=== PATIENT | female | born 1985 | race Caucasian/White ===

== ENCOUNTER → 2016-08-26 | Outpatient (CLI) | payer BC ==
[~2016-08-26] MED LIST: ACET50TA PO; ACET65TA OR; CIPR500T4 OR; DOCU10ELUD PO; MACR50CA PO; MAGNESIUM HYDROXIDE PO; MOTRIN PO; PRENTAB74 PO; [UNRECOGNIZED DRUG - CODE] TOP
--- NOTE | 2016-08-27 06:19 | REP ---
Clinical: Left neck/parotid mass. Technique: Real time do scale ultrasound examination using linear high frequency transducer. Findings: Directed ultrasound examination demonstrates a relatively normal appearing left parotid gland measuring approximately 2.8 x 1.8 x 0.6 cm and including small 2 mm complex but otherwise nonspecific cyst. Adjacent adenopathy is appreciated with lymph nodes measuring up to 1.2 cm. No fluid collection or abscess. Impression: 1. Relatively normal appearance to the parotid gland by ultrasound with small nonspecific 2 mm complex cyst. 2. Adenopathy along the left cervical chain with multiple lymph nodes up to 12 mm. In conjunction with prior CT findings may reflect an infectious/inflammatory process. Correlation and follow up may be warranted. Signed by Ulises Rutherford MD 08/27/2016 06:11 A
== END ==
LOC: M RAD 12:40
PROVIDERS: ATTEND Otolaryngology
DX: K11.6 Mucocele of salivary gland (principal); R59.9 Enlarged lymph nodes, unspecified; D49.0 Neoplasm of unspecified behavior of digestive system

== ENCOUNTER → 2016-10-22 | Outpatient (CLI) | payer BC ==
--- NOTE | 2016-10-22 14:59 | REP ---
Clinical: Contusion. Technique: AP, lateral, bilateral oblique views left ankle. Findings: No acute fracture or dislocation. Skeletal structures and joint spaces are intact and normal. Ankle mortise appears stable. No subcutaneous emphysema or radiodense foreign body. Impression: No acute fracture or dislocation. Signed by Ulises Rutherford MD 10/22/2016 02:16 P
== END ==
LOC: M ADAMS 14:01
PROVIDERS: ATTEND Physician Assistant Medical
DX: S90.02XA Contusion of left ankle, initial encounter (principal); W18.30XA Fall on same level, unspecified, initial encounter; Y92.009 Unspecified place in unspecified non-institutional (private) residence as the place of occurrence of the external cause

== ENCOUNTER 2017-05-17 08:20 | Inpatient (IN) | payer BC ==
[~2017-05-17] VITALS: Ht 154.9 cm; Wt 69.8 kg
[2017-05-17] MEDS ORDERED: KETOROLAC 30 MG/ML VIAL (J1885) IV ONE (08:45)
[2017-05-17] MEDS ORDERED: NS 1,000 ML IV ONE ×2 (08:45→11:30)
[2017-05-17 09:11] LABS: BASO % 0.2 % (0.0-1.0); IMMATURE GRANULOCYTE % 0.9 % (0-0); LYMPH # 0.3 10^3/uL (1.5-4.5); LYMPH % 1.8 % (24.0-44.0); MEAN CORPUSCULAR HEMOGLOBIN 28.5 pg (27.0-33.0); MEAN CORPUSCULAR HGB CONC 34.9 g/dl (32.0-36.5); MEAN CORPUSCULAR VOLUME 81.8 fl (80.0-96.0); MONO # 0.5 10^3/uL (0.0-0.8); MONO % 2.7 % (0.0-5.0); NEUTROPHILS # 16.5 10^3/uL (1.8-7.7); NEUTROPHILS % 94.4 % (36.0-66.0); PLATELET COUNT, AUTOMATED 227 10^3/uL (150-450); RED CELL DISTRIBUTION WIDTH 12.7 % (11.5-14.5); WHITE BLOOD COUNT 17.4 10^3/uL (4.0-10.0)
[2017-05-17] MEDS ORDERED: ONDANSETRON 4MG/2ML VIAL (J2405) IV ONE ×2 (09:15→14:15)
[2017-05-17 09:31] LABS: ANION GAP 9 MEQ/L (8-16); BLOOD UREA NITROGEN 14 MG/DL (7-18); CALCIUM LEVEL 8.9 MG/DL (8.5-10.1); CARBON DIOXIDE LEVEL 26 MEQ/L (21-32); CHLORIDE LEVEL 104 MEQ/L (98-107); CREATININE FOR GFR 0.86 MG/DL (0.55-1.02); GLOMERULAR FILTRATION RATE > 60.0 (>60); GLUCOSE, FASTING 120 MG/DL (70-105); POTASSIUM SERUM 3.3 MEQ/L (3.5-5.1); SODIUM LEVEL 139 MEQ/L (136-145)
[2017-05-17] MEDS ORDERED: cefTRIAXone SOD 2 GM in D5W 50 ML IV ONE (10:15)
[2017-05-17] MEDS ORDERED: ISOVUE-370 76% 100ML VIAL (Q9967) As Ordered ONE (10:16)
--- NOTE | 2017-05-17 10:50 | REP ---
CT of the abdomen pelvis with IV contrast, without bowel contrast: Comparison is 06/22/2010. The visualized lung ha are unremarkable. The hepatic parenchyma, gallbladder, pancreas and spleen are normal size unremarkable. The adrenals are unremarkable. The right and left kidneys demonstrate normal cortical enhancement. There is no perinephric stranding. No hydronephrosis. No CT evidence of pyelonephritis or carbuncle. The abdominal aorta is unremarkable. There is no retroperitoneal adenopathy. The bowel and mesentery are unremarkable. There is no ascites. Pelvis: The appendix is unremarkable. The uterus, adnexa and bladder are unremarkable. There is no ascites or adenopathy. The pelvic bowel loops are unremarkable. Impression: Essentially negative CT of the abdomen pelvis. There is no CT evidence of pyelonephritis or renal carbuncle. No hydronephrosis. No renal calculi or masses. Signed by Galen Ralph MD 05/17/2017 10:41 A
[2017-05-17] MEDS ORDERED: PERCOCET 5MG/325MG TAB PO ONE (11:30)
[2017-05-17] MEDS ORDERED: PROMETHAZINE INJ 25 MG/ML VIAL (J2550) IV ONE (12:45)
[2017-05-17] MEDS ORDERED: KCL 40MEQ in NS 1000ML 1,000 ML IV SCH (12:45)
[2017-05-17 13:46] LABS: CONTROL LINE HCG INT CTR LINE PRESENT
[2017-05-17] MEDS ORDERED: IBUPOTC PO (13:48)
[2017-05-17] MEDS ORDERED: ACET50TAOT PO (13:48)
[2017-05-17] MEDS ORDERED: VANCOMYCIN HCL 1,000 MG, VIAL MATE ADAPTER 1 EACH in D5W 250 ML IV ONE (14:00)
[2017-05-17] MEDS ORDERED: MORPHINE 4 MG/ML 1ML SYRINGE IV ONE (14:15)
[2017-05-17 14:41] LABS: BASO % 0.2 % (0.0-1.0); IMMATURE GRANULOCYTE % 0.3 % (0-0); LYMPH # 0.3 10^3/uL (1.5-4.5); LYMPH % 2.8 % (24.0-44.0); MEAN CORPUSCULAR HEMOGLOBIN 28.2 pg (27.0-33.0); MEAN CORPUSCULAR HGB CONC 34.3 g/dl (32.0-36.5); MONO # 0.4 10^3/uL (0.0-0.8); MONO % 3.7 % (0.0-5.0); NEUTROPHILS # 10.4 10^3/uL (1.8-7.7); PLATELET COUNT, AUTOMATED 185 10^3/uL (150-450); RED CELL DISTRIBUTION WIDTH 12.7 % (11.5-14.5); WHITE BLOOD COUNT 11.2 10^3/uL (4.0-10.0)
--- NOTE | 2017-05-17 14:49 | REP ---
PA and lateral chest: Comparison is 01/10/2006. PA the lung ha are clear. The cardiac size is normal The hank, mediastinum, and bony thorax are unremarkable. Impression: Negative PA and lateral chest. there is no interval change. Signed by Galen Ralph MD 05/17/2017 01:42 P
[2017-05-17 14:53] LABS: INR 1.15
[2017-05-17] MEDS ORDERED: POTASSIUM CHLORIDE 10 MEQ SR TABLET PO ONE (15:00)
[2017-05-17 15:05] LABS: ALBUMIN 3.2 GM/DL (3.2-5.2); ALBUMIN/GLOBULIN RATIO 1.1 (1.00-1.93); BILIRUBIN,DIRECT 0.2 MG/DL (0.0-0.2); BILIRUBIN,TOTAL 0.6 MG/DL (0.2-1.0); TOTAL PROTEIN 6.1 GM/DL (6.4-8.2)
--- NOTE | 2017-05-17 15:15 | REP ---
Pelvic ultrasound transabdominal and Doppler ultrasound assessment: The bladder is adequately distended. The uterus is anteverted and normal size measuring 9.44 x 1 x 6.8 cm. The endometrium is not thickened measuring 6.1 mm. The ovaries are normal size. The right ovary measures 3.3 x 2.5 x 2.1 cm. The left ovary measures 2.8 x 2.1 x 2.0 cm. There is no dominant ovarian mass or cyst. There is vascular flow in both ovaries with the Doppler resistive index of the right ovary measuring 0.51 balloon and of the left ovary measuring 0.64. There is no free fluid in the pelvis. Impression: Essentially negative pelvic ultrasound. There are no dominant ovarian masses or cyst. There is vascular flow in both ovaries. Uterus and endometrium are unremarkable. Signed by Galen Ralph MD 05/17/2017 03:07 P
[2017-05-17] MEDS: AMPICILLIN SOD/SULBACTAM SOD 3 GM in D5W MINI-BAG PLUS 100 ML IV SCH ×2 (16:23→20:40)
[2017-05-17 16:45] VITALS: BP 95/54
--- NOTE | 2017-05-17 16:51 | HPEPDOC ---
[facility] Medical History & Physical Date of Admission May 17, 2017 History and Physical PRIMARY CARE PROVIDER: Unknown PCP ATTENDING: Dr. Anne-Marie Cheng CHIEF COMPLAINT: Flank pain, fevers HISTORY OF PRESENT ILLNESS: This a 32-year-old female with past medical history of tobacco abuse, pyelonephritis, migraines who presents complaining of right flank/CVA pain over the past 3 days. Patient states she also had suprapubic pain as well. Hent subjective fevers and chills at home. Does note dysuria. Had a few episodes of diarrhea overnight which have subsided. Denies any vaginal discharge or bleeding. Recently completed her menstrual cycle. In the ED, patient was noted to be febrile, tachycardic, with notable leukocytosis. She was started on Rocephin initially. There was some concern that the patient may have PID however Samantha Bowling has performed a pelvic exam which was unremarkable, and pelvic ultrasound was essentially negative. The patient states that her last sexual encounter was months ago. Patient denies chest pain/shortness of breath/palpitations. No cough/sore throat. No rashes or tick bites. PAST MEDICAL HISTORY: As per HPI PAST SURGICAL HISTORY: None SOCIAL HISTORY: Denies tobacco, alcohol, illicit drug use. 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 FAMILY HISTORY: Father and sister with migraines ALLERGIES: Please see below. REVIEW OF SYSTEMS: HEENT: Denies sore throat/headache CARDIOVASCULAR: Denies chest pain/palpitations RESPIRATORY: Denies shortness of breath/cough GASTROINTESTINAL: denies nausea/vomiting GENITOURINARY: + Dysuria. No urinary urgency. MUSCULOSKELETAL: Denies myalgias/arthralgias NEUROLOGICAL: Denies any focal weakness HOME MEDICATIONS: Please see below. PHYSICAL EXAMINATION: Vitals: (see below) General: No acute distress, laying comfortably in bed. HEENT: Moist mucous membranes. No erythema/exudate. Neck: No JVD or lymphadenopathy. No nuchal rigidity. Cardiac: Tachycardic, regular rhythm, No murmurs Pulm: Clear to auscultation b/l. No wheezing, rhonchi Abd: NT/ND + BS Ext: No edema or cyanosis Back: + Right, CVA tenderness LABORATORY DATA: See below. IMAGING: CT abd/pelvis 05/17/17 Impression: Essentially negative CT of the abdomen pelvis. There is no CT evidence of pyelonephritis or renal carbuncle. No hydronephrosis. No renal calculi or masses. Pelvic u/s 05/17/17 Impression: Essentially negative pelvic ultrasound. There are no dominant ovarian masses or cyst. There is vascular flow in both ovaries. Uterus and endometrium are unremarkable. MICROBIOLOGY: Please see below. ASSESSMENT/PLAN: 1. Persistent fevers, with notable leukocytosis, and exam notable for suprapubic tenderness and CVA tenderness on the right. The patient's UA only showed [address] abdomen and pelvis ( see above) did not note any areas of pyelonephritis. The exact cause of the patient's fever is not quite known at this point. Blood cultures have been sent. The patient has no signs or symptoms of meningitis. No nuchal rigidity. Pelvic ultrasound (see above). Given the patient's suprapubic/pelvic pain, Samantha Bowling has also performed a pelvic exam which was unremarkable. Chlamydia/gonorrhea amplification was sent. GI panel given episode of diarrhea. We will maintain patient on broad-spectrum antibiotics for now. 2. Tobacco Abuse - cessation counseling. 3. History of pyelonephritis 4. History of migraines DVT prophylaxis- enoxaparin Patient will be followed by Dr. Anne-Marie Cheng starting 05/18/17 at 7 AM. Vital Signs Vital Signs Date Time Temp Pulse Resp B/P (MAP) Pulse Ox O2 Delivery O2 Flow Rate FiO2 05/17/17 15:19 99.9 100 18 Room Air 05/17/17 13:40 95 Laboratory Data Labs 24H Laboratory Tests 2 05/17/17 08:54: Immature Granulocyte % (Auto) 0.9H, White Blood Count 17.4H, Red Blood Count 4.66, Hemoglobin 13.3, Hematocrit 38.1, Mean Corpuscular Volume 81.8, Mean Corpuscular Hemoglobin 28.5, Mean Corpuscular Hemoglobin Concent 34.9, Red Cell Distribution Width 12.7, Platelet Count 227, Neutrophils (%) (Auto) 94.4H, Lymphocytes (%) (Auto) 1.8L, Monocytes (%) (Auto) 2.7, Eosinophils (%) (Auto) 0.0, Basophils (%) (Auto) 0.2, Neutrophils # (Auto) 16.5H, Lymphocytes # (Auto) 0.3L, Monocytes # (Auto) 0.5, Eosinophils # (Auto) 0.0, Basophils # (Auto) 0.0, Immature Granulocyte # (Auto) 0.2H, Nucleated Red Blood Cells % (auto) 0.0, Urine Appearance CLOUDYH, Urine Color YELLOW, Urine pH 7.0, Urine Specific [place] 1.024, Urine Protein 1+H, Urine Glucose (UA) NEGATIVE, Urine Ketones 1+H , Urine Urobilinogen 0.2, Urine Bilirubin NEGATIVE, Urine Leukocyte Esterase NEGATIVE, Urine Blood NEGATIVE, Urine Nitrite NEGATIVE, Urine WBC (Auto) 1, Urine RBC (Auto) 12H, Urine Hyaline Casts (Auto) 0, Urine Bacteria (Auto) 1+H, Urine Squamous Epithelial Cells 12, Urine Mucus (Auto) SMALL, Urine Sperm (Auto ) , Anion Gap 9, Glomerular Filtration Rate > 60.0, Lactic Acid Level 1.1, Blood Urea Nitrogen 14, Creatinine 0.86, Sodium Level 139, Potassium Level 3.3L , Chloride Level 104, Carbon Dioxide Level 26, Calcium Level 8.9, Human Chorionic Gonadotropin, Qual NEGATIVE 05/17/17 14:13: Immature Granulocyte % (Auto) 0.3H, White Blood Count 11.2H, Red Blood Count 4.01, Hemoglobin 11.3#L, Hematocrit 32.9L, Mean Corpuscular Volume 82.0, Mean Corpuscular Hemoglobin 28.2, Mean Corpuscular Hemoglobin Concent 34.3, Red Cell Distribution Width 12.7, Platelet Count 185, Neutrophils (%) (Auto) 93.0H, Lymphocytes (%) (Auto) 2.8L, Monocytes (%) (Auto) 3.7, Eosinophils (%) (Auto) 0.0, Basophils (%) (Auto) 0.2, Neutrophils # (Auto) 10.4H, Lymphocytes # (Auto) 0.3L, Monocytes # (Auto) 0.4, Eosinophils # (Auto) 0.0, Basophils # (Auto) 0.0, Immature Granulocyte # (Auto) 0.0, Nucleated Red Blood Cells % (auto) 0.0, Aspartate Amino Transf (AST/SGOT) 11L, Alanine Aminotransferase (ALT/SGPT) 14, Alkaline Phosphatase 53, Total Bilirubin 0.6, Direct Bilirubin 0.2, C-Reactive Protein, Quantitative 5.61H, Total Protein 6.1L, Albumin 3.2, Albumin/Globulin Ratio 1.10 05/17/17 14:16: Lactic Acid Level 0.7, Prothrombin Time 14.9H, Prothromb Time International Ratio 1.15, Activated Partial Thromboplast Time 36.7 05/17/17 14:41: CBC/BMP Laboratory Tests 05/17/17 08:54 Red Blood Count 4.66, Mean Corpuscular Volume 81.8, Mean Corpuscular Hemoglobin 28.5, Mean Corpuscular Hemoglobin Concent 34.9, Red Cell Distribution Width 12.7 , Neutrophils (%) (Auto) 94.4 H, Lymphocytes (%) (Auto) 1.8 L, Monocytes (%) ( Auto) 2.7, Eosinophils (%) (Auto) 0.0, Basophils (%) (Auto) 0.2, Neutrophils # ( Auto) 16.5 H, Lymphocytes # (Auto) 0.3 L, Monocytes # (Auto) 0.5, Eosinophils # (Auto) 0.0, Basophils # (Auto) 0.0, Calcium Level 8.9 05/17/17 14:13 Red Blood Count 4.01, Mean Corpuscular Volume 82.0, Mean Corpuscular Hemoglobin 28.2, Mean Corpuscular Hemoglobin Concent 34.3, Red Cell Distribution Width 12.7 , Neutrophils (%) (Auto) 93.0 H, Lymphocytes (%) (Auto) 2.8 L, Monocytes (%) ( Auto) 3.7, Eosinophils (%) (Auto) 0.0, Basophils (%) (Auto) 0.2, Neutrophils # ( Auto) 10.4 H, Lymphocytes # (Auto) 0.3 L, Monocytes # (Auto) 0.4, Eosinophils # (Auto) 0.0, Basophils # (Auto) 0.0 Microbiology Microbiology 05/17/17 Blood Culture, Received Pending 05/17/17 Blood Culture, Received Pending 05/17/17 Wet Prep - Final, Complete 05/17/17 Urine Culture, Received Pending Home Medications Scheduled PRN Acetaminophen (Acetaminophen) 500 Mg Tab, 1,000 MG PO Q4H PRN for PAIN Ibuprofen (Ibuprofen) 200 Mg Tab, 800 MG PO Q6H PRN for PAIN Allergies Coded Allergies: Sulfa Drugs (Verified Allergy, Intermediate, HIVES, 11/01/12) Sulfa Drugs Cross Reactors (Verified Allergy, Intermediate, HIVES, 11/01/12) Azithromycin (Verified Adverse Reaction, Intermediate, FLUSHING, TINGLING BILATERAL HANDS AND HEAD, 05/17/17) TESSA KIM MD May 17, 2017 16:51
[2017-05-17] MEDS ORDERED: NS 1,000 ML IV SCH (17:00)
[2017-05-17] MEDS: DOXYCYCLINE HYCLATE 100 MG in D5W MINI-BAG PLUS 100 ML IV SCH (17:46)
[2017-05-17] MEDS: ONDANSETRON 4MG/2ML VIAL (J2405) IV PRN ×2 (18:02→23:48)
[2017-05-17] MEDS: ACETAMINOPHEN TAB 650MG DOSE (2X325MG) PO PRN (18:02)
[2017-05-17 20:00] VITALS: BP 103/58
[2017-05-17 22:00] VITALS: BP 100/54
[2017-05-18] VITALS: BP 109/61
[2017-05-18] MEDS ORDERED: SLF 3 ML SYR IV PRN (01:00)
[2017-05-18] MEDS: AMPICILLIN SOD/SULBACTAM SOD 3 GM in D5W MINI-BAG PLUS 100 ML IV SCH ×2 (03:57→08:53)
[2017-05-18 04:00] VITALS: BP 92/48
[2017-05-18] MEDS: DOXYCYCLINE HYCLATE 100 MG in D5W MINI-BAG PLUS 100 ML IV SCH (05:13)
[2017-05-18] MEDS: SLF 3 ML SYR IV SCH ×2 (05:17→13:02)
[2017-05-18 05:21] LABS: BASO % 0.3 % (0.0-1.0); IMMATURE GRANULOCYTE % 0.4 % (0-0); LYMPH # 0.5 10^3/uL (1.5-4.5); LYMPH % 6.4 % (24.0-44.0); MEAN CORPUSCULAR HEMOGLOBIN 27.8 pg (27.0-33.0); MEAN CORPUSCULAR HGB CONC 33.9 g/dl (32.0-36.5); MEAN CORPUSCULAR VOLUME 82.2 fl (80.0-96.0); MONO # 0.2 10^3/uL (0.0-0.8); MONO % 3.2 % (0.0-5.0); NEUTROPHILS # 6.7 10^3/uL (1.8-7.7); NEUTROPHILS % 89.7 % (36.0-66.0); PLATELET COUNT, AUTOMATED 176 10^3/uL (150-450); RED CELL DISTRIBUTION WIDTH 13.2 % (11.5-14.5); WHITE BLOOD COUNT 7.5 10^3/uL (4.0-10.0)
[2017-05-18 05:42] LABS: ALBUMIN 2.7 GM/DL (3.2-5.2); ALKALINE PHOSPHATASE 43 U/L (45-117); ALT/SGPT 15 U/L (12-78); ANION GAP 7 MEQ/L (8-16); AST/SGOT 11 U/L (15-37); BILIRUBIN,TOTAL 0.5 MG/DL (0.2-1.0); BLOOD UREA NITROGEN 10 MG/DL (7-18); CALCIUM LEVEL 7.2 MG/DL (8.5-10.1); CARBON DIOXIDE LEVEL 24 MEQ/L (21-32); CHLORIDE LEVEL 112 MEQ/L (98-107); GLOMERULAR FILTRATION RATE > 60.0 (>60); GLUCOSE, FASTING 111 MG/DL (70-105); MAGNESIUM LEVEL 1.4 MG/DL (1.8-2.4); POTASSIUM SERUM 2.5 MEQ/L (3.5-5.1); SODIUM LEVEL 143 MEQ/L (136-145); TOTAL PROTEIN 5.4 GM/DL (6.4-8.2)
[2017-05-18] MEDS ORDERED: POTASSIUM CHLORIDE 10 MEQ SR TABLET PO ONE (06:15)
[2017-05-18] MEDS: MAG SULF 1GM/100ML (MAG RUN) 1 GM in APPROPRIATE DILUENT 1 EA IV SCH ×2 (06:46→07:55)
[2017-05-18 08:02] VITALS: BP 114/67
[2017-05-18] MEDS: KCL 40MEQ in NS 1000ML 1,000 ML IV SCH (08:53)
[2017-05-18] MEDS: POTASSIUM CHLORIDE 10 MEQ SR TABLET PO SCH ×2 (08:54→20:39)
[2017-05-18] MEDS: ACETAMINOPHEN TAB 650MG DOSE (2X325MG) PO PRN ×2 (10:52→16:20)
--- NOTE | 2017-05-18 12:17 | ECGEPIP ---
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
--- NOTE | 2017-05-18 12:46 | IPNPDOC ---
Subjective Date Seen The patient was seen on 05/18/17. Subjective Chief Complaint/HPI The patient is a 32-year-old female admitted with a reason for visit of Fever; Flank Pain. Events since last encounter complaining of waterry diarrhea greening in color for the past 2 days , has low grade fever. right flank pain a little better. , Has some persistent nausea. Objective Physical Examination General Exam: Positive: Alert, Cooperative, No Acute Distress Eye Exam: Positive: PERRLA, Conjunctiva & lids normal, EOMI, Negative: Sclera icteric ENT Exam: Positive: Atraumatic, Mucous membr. moist/pink, Pharynx Normal Neck Exam: Positive: Supple, Negative: JVD, thyromegaly Chest Exam: Positive: Clear to auscultation, Normal air movement Heart Exam: Positive: Rate Normal, Regular Rhythm, Normal S1, Normal S2, Negative: Murmurs, Rubs Telemetry: Positive: No significant arrhythmia Abdomen Exam: Positive: Normal bowel sounds, Soft, Tenderness (right lumber region), Negative: Hepatospenomegaly Extremity Exam: Positive: Normal pulses, Negative: Clubbing, Cyanosis, Edema Skin Exam: Positive: Nl turgor and temperature, Negative: Rash, Breakdown Assessment /Plan Problems (1) Acute gastroenteritis Status: Acute Problem Text: GI panel shows salmonella which is self limiting will dc antibiotics will continue IVF. (2) Electrolyte abnormality Status: Acute Problem Text: hypokalemia and hypomagnesemia due to diarrhea getting replaced. (3) Migraine Status: Chronic (4) History of renal stone Status: Chronic Problem Text: CT scan does not show any renal stones and features of pyelonephritis. Plan/VTE VTE Prophylaxis Ordered?: Yes VS, I&O, [facility] Vital Signs/I&O Vital Signs Date Time Temp Pulse Resp B/P (MAP) Pulse Ox O2 Delivery O2 Flow Rate FiO2 05/18/17 08:02 97.1 92 19 114/67 (83) 99 Room Air I&O- Last 24 Hours up to 6 AM 05/19/17 05:59 Intake Total 480 ml Output Total 1020 ml Balance -540 ml Laboratory Data 24H LABS Laboratory Tests 2 05/17/17 14:05: Chlamydia trachomatis DNA (CAN) NEGATIVE, Neisseria gonorrhoeae DNA (CAN) NEGATIVE 05/17/17 14:13: Immature Granulocyte % (Auto) 0.3H, White Blood Count 11.2H, Red Blood Count 4.01, Hemoglobin 11.3#L, Hematocrit 32.9L, Mean Corpuscular Volume 82.0, Mean Corpuscular Hemoglobin 28.2, Mean Corpuscular Hemoglobin Concent 34.3, Red Cell Distribution Width 12.7, Platelet Count 185, Neutrophils (%) (Auto) 93.0H, Lymphocytes (%) (Auto) 2.8L, Monocytes (%) (Auto) 3.7, Eosinophils (%) (Auto) 0.0, Basophils (%) (Auto) 0.2, Neutrophils # (Auto) 10.4H, Lymphocytes # (Auto) 0.3L, Monocytes # (Auto) 0.4, Eosinophils # (Auto) 0.0, Basophils # (Auto) 0.0, Immature Granulocyte # (Auto) 0.0, Nucleated Red Blood Cells % (auto) 0.0, Aspartate Amino Transf (AST/SGOT) 11L, Alanine Aminotransferase (ALT/SGPT) 14, Alkaline Phosphatase 53, Total Bilirubin 0.6, Direct Bilirubin 0.2, C-Reactive Protein, Quantitative 5.61H, Total Protein 6.1L, Albumin 3.2, Albumin/Globulin Ratio 1.10 05/17/17 14:16: Prothrombin Time 14.9H, Prothromb Time International Ratio 1.15, Activated Partial Thromboplast Time 36.7, Lactic Acid Level 0.7 05/18/17 04:57: Immature Granulocyte % (Auto) 0.4H, White Blood Count 7.5, Red Blood Count 3.81L , Hemoglobin 10.6L, Hematocrit 31.3L, Mean Corpuscular Volume 82.2, Mean Corpuscular Hemoglobin 27.8, Mean Corpuscular Hemoglobin Concent 33.9, Red Cell Distribution Width 13.2, Platelet Count 176, Neutrophils (%) (Auto) 89.7H, Lymphocytes (%) (Auto) 6.4L, Monocytes (%) (Auto) 3.2, Eosinophils (%) (Auto) 0.0, Basophils (%) (Auto) 0.3, Neutrophils # (Auto) 6.7, Lymphocytes # (Auto) 0.5L, Monocytes # (Auto) 0.2, Eosinophils # (Auto) 0.0, Basophils # (Auto) 0.0, Immature Granulocyte # (Auto) 0.0, Nucleated Red Blood Cells % (auto) 0.0, Aspartate Amino Transf (AST/SGOT) 11L, Alanine Aminotransferase (ALT/SGPT) 15, Alkaline Phosphatase 43L, Total Bilirubin 0.5, Total Protein 5.4L, Albumin 2.7L , Albumin/Globulin Ratio 1.00, Anion Gap 7L, Glomerular Filtration Rate > 60.0, Blood Urea Nitrogen 10, Creatinine 0.70, Sodium Level 143, Potassium Level 2.5#* L, Chloride Level 112H, Carbon Dioxide Level 24, Calcium Level 7.2#L, Magnesium Level 1.4L CBC/BMP Laboratory Tests 05/17/17 14:13 Red Blood Count 4.01, Mean Corpuscular Volume 82.0, Mean Corpuscular Hemoglobin 28.2, Mean Corpuscular Hemoglobin Concent 34.3, Red Cell Distribution Width 12.7 , Neutrophils (%) (Auto) 93.0 H, Lymphocytes (%) (Auto) 2.8 L, Monocytes (%) ( Auto) 3.7, Eosinophils (%) (Auto) 0.0, Basophils (%) (Auto) 0.2, Neutrophils # ( Auto) 10.4 H, Lymphocytes # (Auto) 0.3 L, Monocytes # (Auto) 0.4, Eosinophils # (Auto) 0.0, Basophils # (Auto) 0.0 05/18/17 04:57 Red Blood Count 3.81 L, Mean Corpuscular Volume 82.2, Mean Corpuscular Hemoglobin 27.8, Mean Corpuscular Hemoglobin Concent 33.9, Red Cell Distribution Width 13.2, Neutrophils (%) (Auto) 89.7 H, Lymphocytes (%) (Auto) 6.4 L, Monocytes (%) (Auto) 3.2, Eosinophils (%) (Auto) 0.0, Basophils (%) (Auto ) 0.3, Neutrophils # (Auto) 6.7, Lymphocytes # (Auto) 0.5 L, Monocytes # (Auto) 0.2, Eosinophils # (Auto) 0.0, Basophils # (Auto) 0.0, Calcium Level 7.2 #L, Aspartate Amino Transf (AST/SGOT) 11 L, Alanine Aminotransferase (ALT/SGPT) 15, Alkaline Phosphatase 43 L, Total Bilirubin 0.5, Total Protein 5.4 L, Albumin 2.7 L Microbiology Microbiology 05/17/17 Blood Culture - Preliminary, Resulted No growth after 24 hours . All specim... 05/17/17 Blood Culture - Preliminary, Resulted No growth after 24 hours . All specim... 05/18/17 Gastrointestinal Tract Panel (PCR) - Final, Resulted Salmonella 05/18/17 , Resulted Pending 05/17/17 Wet Prep - Final, Complete 05/17/17 Urine Culture - Final, Complete TWAN BEDOLLA MD May 18, 2017 12:46
[2017-05-18 14:53] LABS: ANION GAP 8 MEQ/L (8-16); BLOOD UREA NITROGEN 5 MG/DL (7-18); CALCIUM LEVEL 7.9 MG/DL (8.5-10.1); CARBON DIOXIDE LEVEL 24 MEQ/L (21-32); CHLORIDE LEVEL 111 MEQ/L (98-107); CREATININE FOR GFR 0.61 MG/DL (0.55-1.02); GLOMERULAR FILTRATION RATE > 60.0 (>60); GLUCOSE, FASTING 92 MG/DL (70-105); MAGNESIUM LEVEL 2.5 MG/DL (1.8-2.4); POTASSIUM SERUM 3.5 MEQ/L (3.5-5.1); SODIUM LEVEL 143 MEQ/L (136-145)
[2017-05-18 16:37] VITALS: BP 112/71
[2017-05-18 20:00] VITALS: BP 107/62
[2017-05-19] VITALS: BP 110/72
[2017-05-19] MEDS: SLF 3 ML SYR IV SCH ×2 (00:36→06:07)
[2017-05-19] MEDS: KCL 40MEQ in NS 1000ML 1,000 ML IV SCH (00:36)
[2017-05-19 06:00] VITALS: BP 109/77
[2017-05-19] MEDS: ACETAMINOPHEN TAB 650MG DOSE (2X325MG) PO PRN (06:06)
[2017-05-19 06:50] LABS: BASO % 0.7 % (0.0-1.0); EOS % 0.9 % (0.0-3.0); IMMATURE GRANULOCYTE % 1.2 % (0-0); LYMPH # 0.9 10^3/uL (1.5-4.5); LYMPH % 20.4 % (24.0-44.0); MEAN CORPUSCULAR HEMOGLOBIN 28.5 pg (27.0-33.0); MEAN CORPUSCULAR HGB CONC 34.5 g/dl (32.0-36.5); MEAN CORPUSCULAR VOLUME 82.6 fl (80.0-96.0); MONO # 0.4 10^3/uL (0.0-0.8); MONO % 9.9 % (0.0-5.0); NEUTROPHILS # 2.9 10^3/uL (1.8-7.7); NEUTROPHILS % 66.9 % (36.0-66.0); PLATELET COUNT, AUTOMATED 170 10^3/uL (150-450); RED CELL DISTRIBUTION WIDTH 13.2 % (11.5-14.5); WHITE BLOOD COUNT 4.3 10^3/uL (4.0-10.0)
[2017-05-19 07:16] LABS: ALBUMIN 2.9 GM/DL (3.2-5.2); ALBUMIN/GLOBULIN RATIO 0.88 (1.00-1.93); ALKALINE PHOSPHATASE 47 U/L (45-117); ALT/SGPT 17 U/L (12-78); ANION GAP 5 MEQ/L (8-16); AST/SGOT 18 U/L (15-37); BILIRUBIN,TOTAL 0.5 MG/DL (0.2-1.0); BLOOD UREA NITROGEN 3 MG/DL (7-18); CALCIUM LEVEL 8.1 MG/DL (8.5-10.1); CARBON DIOXIDE LEVEL 25 MEQ/L (21-32); CHLORIDE LEVEL 112 MEQ/L (98-107); CREATININE FOR GFR 0.58 MG/DL (0.55-1.02); GLOMERULAR FILTRATION RATE > 60.0 (>60); GLUCOSE, FASTING 90 MG/DL (70-105); MAGNESIUM LEVEL 1.9 MG/DL (1.8-2.4); POTASSIUM SERUM 3.9 MEQ/L (3.5-5.1); SODIUM LEVEL 142 MEQ/L (136-145); TOTAL PROTEIN 6.2 GM/DL (6.4-8.2)
--- NOTE | 2017-05-19 15:44 | DSES ---
DATE OF ADMISSION: 05/17/2017 DATE OF DISCHARGE: 05/19/2017 DISCHARGE DIAGNOSES: 1. Acute gastroenteritis due to salmonella. 2. Electrolyte abnormality including hypomagnesemia and hypokalemia, replaced. 3. History of migraine. 4. History of renal stones. DISCHARGE MEDICATIONS: - Tylenol 1000 mg every four hours as needed for pain - ibuprofen 800 mg by mouth every six hours as needed for pain HOSPITAL COURSE: This is a 32-year-old female who presented with acute onset crampy abdominal pain and nausea, followed by watery diarrhea, greenish colored for one day. The patient was initially thought to have a renal stone or pyelonephritis. However, CT scan of the abdomen and pelvis did not show any signs of stones or pyelonephritis. The patient continued to have persistent diarrhea so gastrointestinal panel was sent which was positive for salmonella. The patient had multiple electrolyte abnormalities which were replaced and IV fluid was continued. Antibiotics were discontinued and spontaneously, the patient's diarrhea started improving and her abdominal pain resolved. At present, the patient does not have any complaints. Her diarrhea is improving. Her vital signs are stable and she is functionally at her baseline, so she is going to be discharged home. PHYSICAL EXAMINATION: VITAL SIGNS: Temperature 97, pulse 80, respiratory rate 18, blood pressure 109/77, pulse oximetry 99% in room air. GENERAL: The patient is awake, alert, and oriented times three, laying down in bed, in no acute distress. HEENT: Normocephalic, atraumatic. Moist mucous membranes. Anicteric eyes. CHEST: Clear to auscultation. CARDIOVASCULAR: S1, S2, regular. No rub, murmur, or gallop. ABDOMEN: Soft, nontender. Bowel sounds present. EXTREMITIES: No edema. LABORATORY DATA: WBC 4.3, hemoglobin 11, platelets 170. Sodium 142, potassium 3.9, chloride 112, bicarbonate 25, BUN 3, creatinine 0.58, calcium 8.1, magnesium 1.9. Liver function tests are normal. DISPOSITION: The patient is discharged home in a stable condition. DISCHARGE INSTRUCTIONS: The patient is to followup with primary care provider in two weeks. Diet as tolerated. Activity as tolerated.
== END 2017-05-19 09:00 | disposition home or self-care (01) | DRG 248 ==
LOC: M ED 08:20 → M ED INP 15:50 → M PCU 16:51 → M MS4PR 05-18 16:35
PROVIDERS: ADMIT Internal Medicine; ATTEND Internal Medicine Nephrology
DX: A02.0 Salmonella enteritis (principal); E83.42 Hypomagnesemia; E87.6 Hypokalemia; F17.200 Nicotine dependence, unspecified, uncomplicated; G43.909 Migraine, unspecified, not intractable, without status migrainosus; Z88.2 Allergy status to sulfonamides; Z88.8 Allergy status to other drugs, medicaments and biological substances

== ENCOUNTER → 2019-07-07 | Outpatient (REF) | payer BC ==
[~2019-07-07] MED LIST changes: +ACET500T15 PO; -ACET50TA PO; -DOCU10ELUD PO; +DOCU5LIQ PO; +HYDR-3715 PO; +IBUPOTC PO; +MAPA500T17 PO
[2019-07-07 21:11] LABS: CHLAMYDIA DNA AMPLIFICATION NEGATIVE (NEGATIVE); GC DNA AMPLIFICATION NEGATIVE (NEGATIVE)
== END ==
LOC: M LAB REF 16:38
PROVIDERS: ATTEND Physician Assistant
DX: R10.30 Lower abdominal pain, unspecified (principal)

== ENCOUNTER 2022-03-23 20:49 | Emergency (ER) | payer BC ==
[~2022-03-23] VITALS: Ht 154.9 cm; Wt 69.4 kg
[2022-03-23 20:51] VITALS: BP 116/82
[2022-03-23] MEDS ORDERED: BUSP1TAB PO (20:58)
[2022-03-23] MEDS ORDERED: NS 1,000 ML IV ONE (21:20)
[2022-03-23] MEDS ORDERED: ONDANSETRON 4MG 2ML VIAL IV ONE (21:20)
[2022-03-23] MEDS ORDERED: KETOROLAC 30 MG/ML 1ML VIAL IV ONE (21:20)
[2022-03-23 21:41] LABS: BASO # 0.1 10^3/uL (0.0-0.2); BASO % 0.6 % (0.0-1.0); EOS % 0.1 % (0.0-3.0); HEMATOCRIT 39.4 % (36.0-47.0); HEMOGLOBIN 13.7 g/dl (12.0-15.5); LYMPH # 1.3 10^3/uL (1.5-5.0); MEAN CORPUSCULAR HEMOGLOBIN 28.1 pg (27.0-33.0); MEAN CORPUSCULAR HGB CONC 34.8 g/dl (32.0-36.5); MEAN CORPUSCULAR VOLUME 80.9 fl (80.0-96.0); MONO # 0.4 10^3/uL (0.0-0.8); MONO % 4.9 % (2.0-8.0); NEUTROPHILS # 7.3 10^3/uL (1.5-8.5); NEUTROPHILS % 80.1 % (36.0-66.0); PLATELET COUNT, AUTOMATED 295 10^3/uL (150-450); RED BLOOD COUNT 4.87 10^6/uL (4.00-5.40); WHITE BLOOD COUNT 9.1 10^3/uL (4.0-10.0)
[2022-03-23 22:08] LABS: ALBUMIN 4.5 GM/DL (3.2-5.2); ALT/SGPT 18 U/L (12-78); BILIRUBIN,DIRECT 0.2 MG/DL (0.0-0.2); BILIRUBIN,TOTAL 0.9 MG/DL (0.2-1.0); LIPASE 93 U/L (73-393)
[2022-03-23 22:22] LABS: HCG, SERUM QUALITATIVE NEGATIVE (NEGATIVE)
[2022-03-23] MEDS ORDERED: POTASSIUM CHLORIDE 10MEQ SR TABLET PO ONE (22:35)
[2022-03-23] MEDS ORDERED: traMADol 50 MG TAB (HOME DOSE PACK) PO ONE (22:45)
[2022-03-23] MEDS ORDERED: ONDANSETRON 4MG ORAL DISINTEGRATING TAB PO ONE (22:45)
[2022-03-23] MEDS ORDERED: METOCLOPRAMIDE INJ 10MG/2ML VIAL (J2765 PER 1) IV ONE (22:45)
[2022-03-23] MEDS ORDERED: traMADol 50 MG TAB PO ONE (22:45)
[2022-03-23] MEDS ORDERED: ONDA4TAB6 PO (22:50)
[2022-03-23] MEDS ORDERED: TRAM50TA2 PO (22:50)
== END 2022-03-23 23:35 | disposition home or self-care (01) ==
LOC: M ED 20:49
DX: A08.4 Viral intestinal infection, unspecified (principal)
CPT/HCPCS: 80047; 80076; 83690; 84703; 85025; 87486; 87581; 87633; 87798; 96361; 96374; 96375; 99284; J1885; J2405; J2765

== ENCOUNTER → 2022-05-09 | Outpatient (REF) | payer BC ==
[~2022-05-09] MED LIST changes: +BUSP1TAB PO; +ONDA4TAB6 PO; +TRAM50TA2 PO
[2022-05-09 13:49] LABS: HCG, SERUM QUALITATIVE NEGATIVE (NEGATIVE)
== END ==
LOC: M LAB REF 12:16
PROVIDERS: ATTEND Registered Nurse
DX: N64.4 Mastodynia (principal); Z23 Encounter for immunization; D48.5 Neoplasm of uncertain behavior of skin

== ENCOUNTER → 2023-10-23 | Outpatient (CLI) | payer BC ==
[2023-10-23 13:56] LABS: C REACTIVE PROTEIN QUANTITATIV 0.9 MG/DL (<1.0); RHEUMATOID FACTOR QUANT 6.7 IU/ML (<14)
== END ==
LOC: M WUC 09:39
PROVIDERS: ATTEND Physician Assistant Medical
DX: M25.559 Pain in unspecified hip (principal); R53.83 Other fatigue

== ENCOUNTER 2024-11-18 09:16 | Emergency (ER) | payer BC ==
[~2024-11-18 09:16] MED LIST changes: +ONDA-282 PO; -ONDA4TAB6 PO
[2024-11-18 11:10] LABS: BASO % 0.6 % (0.0-1.0); EOS % 0.3 % (0.0-3.0); HEMATOCRIT 41.6 % (36.0-47.0); HEMOGLOBIN 14.1 g/dl (12.0-15.5); LYMPH # 0.9 10^3/uL (1.5-5.0); LYMPH % 13.6 % (24.0-44.0); MEAN CORPUSCULAR HEMOGLOBIN 28.1 pg (27.0-33.0); MEAN CORPUSCULAR HGB CONC 33.9 g/dl (32.0-36.5); MONO # 0.3 10^3/uL (0.0-0.8); MONO % 4.1 % (2.0-8.0); NEUTROPHILS # 5.6 10^3/uL (1.5-8.5); NEUTROPHILS % 81.1 % (36.0-66.0); PLATELET COUNT, AUTOMATED 320 10^3/uL (150-450); RED BLOOD COUNT 5.01 10^6/uL (4.00-5.40); WHITE BLOOD COUNT 6.8 10^3/uL (4.0-10.0)
[2024-11-18 11:44] LABS: HCG, SERUM QUALITATIVE NEGATIVE (NEGATIVE)
[2024-11-18 11:46] LABS: ALBUMIN 4.3 G/DL (3.2-5.2); ALKALINE PHOSPHATASE 69 U/L (35-104); ALT/SGPT 19 U/L (7.0-40); AST/SGOT 17 U/L (<34); BILIRUBIN,DIRECT 0.2 MG/DL (<0.4); BILIRUBIN,TOTAL 0.5 MG/DL (0.3-1.2); BLOOD UREA NITROGEN 14 MG/DL (9-23); CALCIUM LEVEL 9.9 MG/DL (8.5-10.1); CARBON DIOXIDE LEVEL 28 MMOL/L (20-31); CHLORIDE LEVEL 105 MMOL/L (98-107); CREATININE FOR GFR 0.61 MG/DL (0.55-1.30); GLOMERULAR FILTRATION RATE > 90.0 (>58); GLUCOSE, FASTING 93 MG/DL (60-100); POTASSIUM SERUM 3.9 MMOL/L (3.5-5.1); SODIUM LEVEL 142 MMOL/L (136-145); TOTAL PROTEIN 7.8 G/DL (5.7-8.2)
[2024-11-18 11:48] LABS: THYROID STIMULATING HORMONE 0.616 uIU/ML (0.55-4.78); THYROXINE (T4) 10.8 UG/DL (4.5-10.9)
[2024-11-18] MEDS: ONDANSETRON 4MG 2ML VIAL IV ONE (12:22)
[2024-11-18] MEDS: NS (Normal Saline) 0.9% 1,000 ML IV ONE (13:10)
[2024-11-18] MEDS: KETOROLAC 30 MG/ML 1ML VIAL IV ONE (13:10)
[2024-11-18] MEDS: ACETAMINOPHEN 500 MG TAB PO ONE (13:10)
[2024-11-18 14:45] VITALS: O2SAT 99
[2024-11-18 14:46] VITALS: BP 119/68; TEMP 96.7
== END 2024-11-18 14:55 | disposition home or self-care (01) ==
LOC: M ED 09:16
DX: R42 Dizziness and giddiness (principal); R51.9 Headache, unspecified; Z88.1 Allergy status to other antibiotic agents; Z88.2 Allergy status to sulfonamides; Z79.899 Other long term (current) drug therapy
CPT/HCPCS: 36415; 70450; 71045; 80048; 80076; 84436; 84443; 84703; 85025; 85379; 93005; 93041; 94760; 96361; 96374; 96375; 99285; J1885; J2405

== ENCOUNTER → 2025-05-08 | Outpatient (REF) | payer BC ==
[2025-05-08 18:18] LABS: HCG, SERUM QUALITATIVE NEGATIVE (NEGATIVE)
== END ==
LOC: M LAB REF 17:21
DX: Z32.00 Encounter for pregnancy test, result unknown (principal)

== ENCOUNTER → 2025-05-16 | Outpatient (CLI) | payer BC | LOC: M RAD 10:24 | DX: R10.22 Pelvic and perineal pain left side (principal); N83.201 Unspecified ovarian cyst, right side; N88.8 Other specified noninflammatory disorders of cervix uteri; Z97.5 Presence of (intrauterine) contraceptive device; N83.202 Unspecified ovarian cyst, left side ==